=== PATIENT | male | born 1975 | race American Indian/Alaskan Native ===

== ENCOUNTER 2016-09-11 12:16 | Emergency (ER) | payer MEDICARE ==
[2016-09-11 13:57] LABS: Basophils % (Auto) 1.3 % (0.0-1.8); Eosinophils % (Auto) 4.3 % (0.0-4.3); Hematocrit 36.1 % (35.5-45.6); Hemoglobin 12.2 gm/dl (11.8-15.2); Mean Corpuscular HGB Conc 34 % (32-34); Mean Corpuscular Hemoglobin 33 pg (28-32); Mean Corpuscular Volume 96 fl (84-94); Platelet Count 289 K/mm3 (140-440); Red Blood Count 3.75 M/mm3 (3.65-5.03); White Blood Count 5.3 K/mm3 (4.5-11.0)
--- NOTE | 2016-09-11 14:01 | XRay Report ---
ROUTINE CHEST, TWO VIEWS: HISTORY: Shortness of breath. The trachea, heart, mediastinal contour, lung christians[place] and bony thorax are unremarkable. IMPRESSION: Unremarkable chest x-ray. No significant change since 01/26/16.
[2016-09-11 14:47] LABS: BUN/Creatinine Ratio 4.18; Calcium 9.4 mg/dL (8.4-10.2); Chloride 87.5 mmol/L (98-107); Potassium 4.9 mmol/L (3.6-5.0)
[2016-09-11] MEDS ORDERED: DUONEB 0.5 MG-3 MG/3 ML SOLN IH ONE (21:26)
--- NOTE | 2016-09-11 21:28 | Emergency Department Report ---
HPI - General Chief Complaint: Dyspnea/Respdistress Time Seen by Provider: 09/11/16 21:09 - HPI HPI: This is a 41-year-old -[place] male presents to the emergency department with complaint of head and chest congestion, shortness of breath with exertion and some weakness earlier today. The patient is dialysis dependent and last had dialysis on Sunday. He said he was unable to make his chair time today because of his weakness. He says that the weakness has resolved but he still has the congestion and tightness. He denies any swelling. He has not taken anything for symptoms prior to presentation. The patient also got concerned as he usually has normal urine output but today it is diminished or he has trouble voiding. His primary care doctor and commercial fisher are both through [place]. No recent travel or sick contacts at home. He did not take anything for symptoms prior to presentation. No history of IN, CVA, PE/DVT. ED Past Medical Hx - Past Medical History Hx Hypertension: Yes Hx Heart Attack/AMI: No Hx Congestive Heart Failure: Yes Hx Diabetes: No Hx Deep Vein Thrombosis: No Hx Renal Disease: Yes (last dialyzed 05/21/15 through [facility] fistula) Hx Sickle Cell Disease: No Hx Seizures: No Hx Kidney Stones: No Hx Asthma: No Hx COPD: No Hx Tuberculosis: No Hx HIV: Yes - Surgical History Hx Coronary Stent: No Hx Pacemaker: No Hx Internal Defibrillator: No Hx Cholecystectomy: Yes Additional Surgical History: Right Upper extremity fistula - Social History Smoking Status: Never Smoker Substance Use Type: None - Medications Home Medications: Home Medications Medication Instructions Recorded Confirmed Last Taken Type amLODIPine [Norvasc] 10 mg PO DAILY 05/17/15 01/27/16 01/26/16 History Darunavir Ethanolate [Prezista] 800 mg PO DAILY 05/23/15 01/27/16 01/26/16 History Dolutegravir Sodium [Tivicay] 50 mg PO DAILY 05/23/15 01/27/16 01/26/16 History Furosemide [Lasix TAB] 80 mg PO DAILY 05/23/15 01/27/16 01/26/16 History Metoprolol [Lopressor TAB] 100 mg PO BID 05/23/15 01/27/16 01/26/16 History Ritonavir [Norvir] 100 mg PO DAILY 05/23/15 01/27/16 01/26/16 History Sevelamer HCl [Renagel] 800 mg PO TID 05/23/15 01/27/16 01/26/16 History hydrALAZINE [Apresoline TAB] 100 mg PO TID 05/23/15 01/27/16 01/26/16 History lamiVUDine [Epivir] 75 mg PO DAILY 05/23/15 01/27/16 01/26/16 History Famotidine [Pepcid] 20 mg PO BID #60 tablet 01/28/16 Unknown Rx ALBUTEROL Inhaler [ProAir HFA 2 puff IH QID PRN #1 inhalation 09/11/16 Unknown Rx Inhaler] Azithromycin [Zithromax Z-SAMIA] 250 mg PO DAILY #6 tab 09/11/16 Unknown Rx Fluticasone [Flonase] 1 spray NS QDAY #1 bottle 09/11/16 Unknown Rx ED Review of Systems ROS: Stated complaint: JOCELYNN Other details as noted in HPI Comment: All other systems reviewed and negative Constitutional: denies: chills, fever Eyes: denies: eye pain, eye discharge, vision change ENT: congestion. denies: throat pain Respiratory: shortness of breath, SOB with exertion Cardiovascular: denies: palpitations, edema Gastrointestinal: denies: abdominal pain, nausea, diarrhea Genitourinary: denies: urgency, dysuria Skin: denies: rash, lesions Neurological: denies: headache, weakness, paresthesias Physical Exam - Physical Exam Vital Signs: Vital Signs 09/11/16 12:42 Temperature 98.0 F Pulse Rate 81 Respiratory 20 Rate Blood Pressure 126/74 O2 Sat by Pulse 100 Oximetry Physical Exam: GENERAL: The patient is well-developed well-nourished. HEENT: Normocephalic. Atraumatic. Extraocular motions are intact. Patient has moist mucous membranes. Pupils equal reactive to light bilaterally. NECK: Supple. Trachea is midline. CHEST/LUNGS: Clear to auscultation. There is no respiratory distress noted. HEART/CARDIOVASCULAR: Regular. There is no tachycardia. There is no gallop rub or murmur. ABDOMEN: Abdomen is soft, nontender. Patient has normal bowel sounds. There is no abdominal distention. SKIN: There is no rash. There is no edema. There is no diaphoresis. NEURO: The patient is awake, alert, and oriented. The patient is cooperative. The patient has no focal neurologic deficits. The patient has normal speech. Cranial nerves II-12 grossly intact. MUSCULOSKELETAL: There is no tenderness or deformity. There is no limitation range of motion. There is no evidence of acute injury. Muscle strength 5 out of 5 upper and lower extremities bilaterally. Cap refill less than 2 seconds. Radial pulses +2 over 4 bilaterally. Patient has a dialysis fistula to the right upper extremity that is patent. ED Course Vital Signs 09/11/16 12:42 Temperature 98.0 F Pulse Rate 81 Respiratory 20 Rate Blood Pressure 126/74 O2 Sat by Pulse 100 Oximetry - Consultations Consultation #1: I spoke with the commercial fisher on-call, Dr. Pineda, regarding the patient missing his dialysis, his urine output and his labs, his chest x-ray. Based on all this and the patient's vital signs, the commercial fisher feels that the patient is safe for discharge home at this time, but he does recommend following up with the nephrology clinic tomorrow to try and get dialysis done tomorrow instead of his next scheduled appointment on Sunday. 09/11/16 23:17 ED Medical Decision Making - Lab Data Result diagrams: 09/11/16 13:37 09/11/16 13:37 - Radiology Data Radiology results: image reviewed interpreted by me: Chest x-ray did not show any acute process. Heart is normal shape and size. No effusions. No pneumothorax. No signs of pneumonia seen. - Medical Decision Making 41-year-old male presents the emergency department with complaint of some head and chest congestion, shortness of breath with exertion and some generalized weakness. Patient was evaluated with physical exam, labs, imaging and EKG. Physical exam the patient does not have any focal, motor or sensory deficits and has full muscle strength. Cranial nerves are intact. Patient has normal sounding heart and lungs to auscultation. Patient does sound kind of congested in the head. Even though the lungs sound good he was given a breathing treatment and says that it felt better and he is improved. EKG did not show any signs of ST elevation IN or ischemia. Chest x-ray did not show any pneumonia, pleural effusions or signs of volume overload. Patient's labs were otherwise unremarkable except for the known end-stage renal disease. There was no hyperkalemia. Patient did not have any fever and there was no leukocytosis. Patient was able to walk around the emergency department and appeared stable on doing so. The patient complained that he was having decreased urine output but then did admit to at least 500 mL of urine output prior to presentation today and he put out 250 in the emergency department. Patient also only had 30 mL of urine when he was given a bladder scan. All this information was given to her commercial fisher who felt the patient was safe for discharge home but does encourage the patient to see his dialysis clinic tomorrow for dialysis to be done. Patient understands and agrees the plan will return to the ER with any worsening of symptoms or any acute distress. - Differential Diagnosis upper respiratory infection, pneumonia, bronchitis, hypervolemia Critical Care Time: No Critical care attestation.: If time is entered above; I have spent that time in minutes in the direct care of this critically ill patient, excluding procedure time. ED Disposition Clinical Impression: Shortness of breath on exertion Upper respiratory infection Qualifiers: URI type: unspecified URI Qualified Code(s): J06.9 - Acute upper respiratory infection, unspecified Disposition: DISCHARGED TO HOME OR SELFCARE Is pt being admited?: No Does the pt Need Aspirin: No Condition: Stable Instructions: Upper Respiratory Infection (ED), End-Stage Kidney Disease (ED) Additional Instructions: Please call your nephrology clinic/dialysis clinic first thing tomorrow morning and see if you can get in to get a appointment for dialysis tomorrow. Return to the emergency department with any worsening of your symptoms or any acute distress. Prescriptions: ALBUTEROL Inhaler [ProAir HFA Inhaler] 2 puff IH QID PRN #1 inhalation PRN Reason: Shortness Of Breath Azithromycin [Zithromax Z-SAMIA] 250 mg PO DAILY #6 tab Fluticasone [Flonase] 1 spray NS QDAY #1 bottle Referrals: PRIMARY CARE, [Primary Care Provider] - [facility] Time of Disposition: 23:20
--- NOTE | 2016-09-11 21:32 | Admit Criteria Form ---
Admission Criteria Documentation: HEART FAILURE: COMMON COMPLICATIONS Clinical Indications for Inpatient Care (Place 'X' for any and all applicable criteria): Ongoing inpatient care may be indicated for heart failure with ANY ONE of the following (1)(2)(3)(4)(5): [ ]I. Ongoing need for care for primary condition requiring frequent therapy adjustments because of changes in cardiac function (eg, drug dosage changes for drugs that are renally metabolized) [ ]II. New-onset heart failure [ ]III. Heart failure with decreased urine output not responsive to attempts to optimize volume status [ ]IV. Acute cardiac ischemia causing or associated with failure [X ]V. Complications of heart failure, including ANY ONE of the following: [ ]a) Pericardial effusion [ ]b) Symptomatic pleural effusion [ ]c) O2 saturation <90% or PO2 < 60 mm Hg (8.0 kPa) on room air or require baseline supplemental O2 [ ]d) Tachypnea [X ]e) Dyspnea [ ]f) Syncope [ ]g) Change in mental status [ ]h) Acute renal insufficiency that is severe (reduction of more than 50% in estimated glomerular filtration rate from baseline) or progressive reduction of more than 25% in estimated glomerular filtration rate from baseline, with creatinine continuing to rise) [ ]i) Hemodynamic instability [ ]j) Anasarca [ ]k) Clinically significant metabolic abnormalities due to heart failure (eg, new-onset metabolic acidosis) Extended stay beyond goal length of stay for primary condition may be needed until ALL of the following are present(1)(3): [ ]a) Stable and effective diuretic regimen established (or patient on stable dialysis regimen if in chronic renal failure) [ ]b) Breathing comfortably at rest [ ]c) Saturation of arterial oxygen greater than 90% or at acceptable baseline [ ]d) Pulmonary edema absent or improved [ ]e) Hemodynamic stability [ ]f) Volume status acceptable on oral medication [ ]g) Peripheral or sacral edema absent or improved [ ]h) Renal function stable and manageable at a lower level of care [ ]i) Complications (eg, pleural effusion) resolved or manageable at a lower level of care [ ]j) Patient or caregiver has received written discharge instructions or educational material addressing activity level, diet, discharge medications, follow-up appointment, weight monitoring, and what to do if symptoms worsen The original [facility] content created by [employer] has been revised. The portions of the content which have been revised are identified through the use of italic text or in bold, and [facility] has neither reviewed nor approved the modified material.All other unmodified content is copyright [facility]. Please see references footnoted in the original [facility] edition 2016
[2016-09-11 23:04] VITALS: BP 140/77
== END 2016-09-11 23:34 | disposition home or self-care (01) ==
LOC: ED 12:16
DX: J06.9 Acute upper respiratory infection, unspecified (principal); R06.02 Shortness of breath; I50.9 Heart failure, unspecified; I12.0 Hypertensive chronic kidney disease with stage 5 chronic kidney disease or end stage renal disease; N18.6 End stage renal disease; Z99.2 Dependence on renal dialysis
CPT/HCPCS: 36415; 71020; 80048; 83880; 85025; 93005; 93010; 94640; 99284